=== PATIENT | female | born 1990 | race Caucasian/White ===

== ENCOUNTER 2020-03-24 11:40 | Emergency (ER) | payer OTHER, SELFPAY ==
[2020-03-24 11:51] VITALS: BP 108/71; PULSE 86; RESP 18; TEMP 36.9; O2SAT 99; BMI 26.4
--- NOTE | 2020-03-24 12:04 | CT_ITS ---
EXAMINATION: CT SOFT TISSUE NECK WITH CONTRAST CLINICAL INFORMATION: Right lower dental pain. COMPARISON: None TECHNIQUE: Following the intravenous administration of 100 mL of Omnipaque 350 intravenous contrast, helical imaging was performed in the axial plane with generation of coronal and sagittal reformatted images. This CT examination was performed using dose optimization techniques as appropriate, variously including the following: *Automated exposure control *Adjustment of mA and/or kV according to patient size (this includes techniques or standardized protocols for targeted exams where dose is matched to indication/reason for exam; i.e. extremities or head) *Use of iterative reconstruction technique DLP: 789 mGy-cm FINDINGS: There are prominent large right submandibular lymph nodes largest one measuring 1.9 x 1.1 cm image 69/3. The parotid glands are homogeneous in attenuation. The submandibular glands are normal. No contour abnormality or pathologic enhancement is seen within the oral cavity or pharyngeal mucosal space. There is moderate soft tissue in the right anterior buccal space extending to the right mandibular soft tissues and mild cellulitis involving the subcutaneous right cheek fat. Due to several dental amalgam related artifacts along the right and left mandible the exam is limited. There is a small premolar cyst extending to the lateral cortex of the abdomen mandible on axial image 67/CN coronal image 18/5 likely small abscess. The laryngeal structures are normal. The parapharyngeal fat is preserved. The carotid sheath vasculature opacify normally. No extra mucosal soft tissue mass or fluid collection is seen. No retropharyngeal fluid collection is seen. The thyroid gland is enlarged and heterogeneous. The superior mediastinum is unremarkable. Platelike atelectasis right upper lobe. The mastoid air cells and visualized portions of the paranasal sinuses are well-aerated. The temporomandibular joints are normal. No periapical disease is identified. No osseous abnormalities are seen. The imaged portions of the brain parenchyma are unremarkable. CT/CT soft tissue neck w con IMPRESSION: Right lower premolar periapical cyst/abscess with right mandibular soft tissue cellulitis. No soft tissue drainable abscess seen. Abnormal right submandibular gland space lymphadenopathy. Heterogenous slightly enlarged thyroid gland.
--- NOTE | 2020-03-24 12:04 | ED.DENTAL ---
HPI - Dental/Oral General Chief complaint: Dental/Oral Stated complaint: Dental Pain Time Seen by Provider: 03/24/20 11:58 Source: patient Mode of arrival: ambulatory Limitations: no limitations History of Present Illness HPI Narrative: 30yoF c PMHx of anxiety disorder, bipolar 1 disorder and schizophrenic disorder presenting to the ED with complaints of right lower facial swelling due to of fractured tooth/ dental pain. The patient reports she followed up with her dentist yesterday and they started her on Augmentin and she has taken 3 doses although she called them back today due to worsening swelling and instructed her to come to the emergency department. Patient denies any other symptoms complaints or concerns at this time. Location: Tooth # (possibly 28th Tooth ) Related Data Previous Rx's Medication Instructions Recorded clindamycin HCl 300 mg PO TID 14 Days #42 cap 03/24/20 ibuprofen 800 mg PO Q8H PRN #14 tab 03/24/20 oxycodone-acetaminophen [Percocet] 1 tab PO Q6H PRN #14 tab 03/24/20 Allergies Allergy/AdvReac Type Severity Reaction Status Date / Time No Known Allergies Allergy Unverified 02/10/20 17:33 Review of Systems Review of Systems: Constitutional : No Fever, No Chills, No changes in PO intake, No difficulty speaking, no recent dental procedure, no heat or cold intolerance while eating, no recent face trauma, ENT/Mouth : + jaw pain, + facial swelling, No swallowing difficulty, no change in voice, no drooling, no trismus, no bleeding, no throat swelling, no lacerations, no tongue swelling, gum swelling, Eyes: No Eye Pain, No periorbital Swelling Cardiovascular : No Chest Pain, No SOB Respiratory : No Cough, No Sputum, No Wheezing, No Smoke Exposure, No Dyspnea Gastrointestinal : No Nausea, No Vomiting, No Diarrhea Genitourinary : No Dysuria Musculoskeletal : No Myalgias Skin : + facial swelling, + facial redness, No rash, Neuro : No Weakness, No Numbness, No Headache Yes all other systems are reviewed and are negative [facility] Past Medical History Attestation statement: The following information was validated with the patient. Medical History Anxiety Bipolar 1 disorder Schizophrenic disorder Surgical History Hx of appendectomy Social History Social History Alcohol intake: never Smoking Status: Current every day smoker Use of substances other than those prescribed or required for medical reasons: Yes Substance Use Type: Marijuana Substance Use Frequency: Daily Any prior treatment program specific to substance use: No Advance Directives: No Advance Directives Information Provided: No Physical Exam Vital Signs: Vital Signs: Vital Signs Temp Pulse Resp BP Pulse Ox 03/24/20 14:00 98.5 F 82 18 110/68 98 03/24/20 11:51 98.4 F 86 18 108/71 99 Body Mass Index 26.4 vital signs have been reviewed as normal and appeared to be correct. Blood pressure normal. Heart rate normal. Respiration rate normal. Temperature normal. Oxygen saturation normal. Appearance: Alert. Oriented X3. No acute distress. Head: Right mandibular sts. Eyes: PERRLA. EOMI. Conjunctiva and sclera normal. Eyelids normal. ENT: EAC normal. Pharynx normal. Uvula midline. Moist mucous membranes. No trismus noted. No drooling noted. No muffled voice noted. Dentation: At right lower molar possibly the 28th molar site there is no tooth and patient has fluctuance at the periodontal aspect ? abscess. No draining noted. Neck: Normal inspection. Neck supple. FROM. No adenopathy. Thyroid Normal. No meningeal signs. No neck mass noted. CVS: Normal heart rate and rhythm. Heart sound normal. No murmurs noted. Pulses normal throughout. Respiratory: No respiratory distress. Painless inspiration. Breath sounds normal. No wheezes/rales/rhonchi noted. Chest nontender. No accessory muscle usage noted or decreased air movement noted. Back:Full range of motion noted. Skin: Skin warm and dry. Normal skin color. Normal skin turgor. No rashes/lesions/lacerations noted. Extremities: Extremities exhibit normal range of motion. Extremities nontender. Neuro: Oriented X 3. No motor deficit. No sensory deficit. Reflexes normal. Course Course Course Narrative: 12noon - 30yoF c PMHx of anxiety disorder, bipolar 1 disorder and schizophrenic disorder presenting to the ED with complaints of right lower facial swelling due to of fractured tooth/ dental pain. The patient reports she followed up with her dentist yesterday and they started her on Augmentin and she has taken 3 doses although she called them back today due to worsening swelling and instructed her to come to the emergency department. Patient denies any other symptoms complaints or concerns at this time. - Concern for Periodontal abscess vs Periapical abscess vs dental infection c facial cellulitis. - Plan: Labs, CT SCAN of facial bones, blood cultures, lactic acid. provide IVFs, 4 mg of morphine and start IV abx's. Pt does not meets sepsis at this time. All vitals are WNL. Reevaluation(s) Reevaluation #1: - [place] [address]. Otherwise all other labs are WNL. Serum quant negative. Patient awaiting CT scan of facial bones with IV contrast to evaluate for possible abscess vs Lugwigs. - I notice when I went to re-examine the patient that now she has more soft tissue swelling extending to the left side of the chin/mandibular area which she did not have when she initially arrived. She is awaiting CT scan of facial bones with the stat read. Given 1 mg of Dilaudid and topical numbing medication will re-evaluate. Time: 14:07 Reevaluation #2: CT scan of facial bones and neck revealed right lower rodriguez molar periapical cyst / abscess with right mandibular soft tissues cellulitis. No soft tissue drainable abscess seen therefore will DC home with p.o. antibiotics and instructions to return in [address] scan reports that there is no drainable abscess at this time. Patient understands and agrees with this plan. Time: 16:23 MDM - Dental/Oral Medical Records Attestation: I reviewed the patient's medical records. Lab Data Attestation: I reviewed the patient's lab results. Result diagrams: 03/24/20 12:13 03/24/20 12:13 Labs: Lab Results 03/24/20 03/24/20 03/24/20 Range/Units 12:13 12:13 12:13 WBC 12.1 H (4.8-10.8) X10*3/uL RBC 4.05 L (4.20-5.50) X10*6/uL Hgb 11.7 L (12.0-16.0) g/dl Hct 36.7 L (37-47) % MCV 90.6 (80-98) fL MCH 28.9 (27.0-33.0) pg MCHC 31.9 (31.0-35.0) g/dl RDW 13.8 (11.0-16.0) % Plt Count 317 (160-400) X10*3/uL MPV 9.0 L (9.4-12.3) fL Immature Gran % (Auto) 0.4 (0.0-0.4) % Neut % (Auto) 74.4 H (45-73) % Lymph % (Auto) 18.5 L (20-40) % Spalding % (Auto) 6.3 (2-11) % Eos % (Auto) 0.2 (0-4) % Baso % (Auto) 0.2 (0-2) % Lymph # (Auto) 2.2 (1.2-4.9) X10*3/uL [place] # (Auto) 0.8 (0.1-1.2) X10*3/uL Eos # (Auto) 0.0 (0.0-0.4) X10*3/uL Baso # (Auto) 0.0 (0.0-0.2) X10*3/uL Abs Immat Gran (auto) 0.05 H (0.00-0.03) X10*3/uL Absolute Neuts (auto) 9.0 H (2.0-8.3) X10*3/uL Absolute Nucleated RBC 0.000 (0.0-0.012) X10*3/uL Nucleated RBC % (auto) 0.0 (0.0-0.2) /100WBC PT 12.9 (10.8-13.0) SEC INR 1.1 (0.9-1.1) Hold Blue Top SEE NOTE Sodium 136 (135-145) mmol/L Potassium 3.9 (3.3-5.1) mmol/l Chloride 105 (96-108) mmol/L Carbon Dioxide 23 (22-29) mmol/L Anion Gap 12 (12-20) BUN 8 L (9-16) mg/dL Creatinine 0.63 (0.5-1.4) mg/dL Estim Creat Clear Calc 115.9 Estimated GFR > 60 Random Glucose 92 (60-115) mg/dL Lactic Acid (0.5-2.0) mmol/L Calcium 8.2 L (8.4-10.2) mg/dL Beta HCG, Quant < 2 mIU/mL 03/24/20 Range/Units 12:13 WBC (4.8-10.8) X10*3/uL RBC (4.20-5.50) X10*6/uL Hgb (12.0-16.0) g/dl Hct (37-47) % MCV (80-98) fL MCH (27.0-33.0) pg MCHC (31.0-35.0) g/dl RDW (11.0-16.0) % Plt Count (160-400) X10*3/uL MPV (9.4-12.3) fL Immature Gran % (Auto) (0.0-0.4) % Neut % (Auto) (45-73) % Lymph % (Auto) (20-40) % Sp[place]ding % (Auto) (2-11) % Eos % (Auto) (0-4) % Baso % (Auto) (0-2) % Lymph # (Auto) (1.2-4.9) X10*3/uL [place] # (Auto) (0.1-1.2) X10*3/uL Eos # (Auto) (0.0-0.4) X10*3/uL Baso # (Auto) (0.0-0.2) X10*3/uL Abs Immat Gran (auto) (0.00-0.03) X10*3/uL Absolute Neuts (auto) (2.0-8.3) X10*3/uL Absolute Nucleated RBC (0.0-0.012) X10*3/uL Nucleated RBC % (auto) (0.0-0.2) /100WBC PT (10.8-13.0) SEC INR (0.9-1.1) Hold Blue Top Sodium (135-145) mmol/L Potassium (3.3-5.1) mmol/l Chloride (96-108) mmol/L Carbon Dioxide (22-29) mmol/L Anion Gap (12-20) BUN (9-16) mg/dL Creatinine (0.5-1.4) mg/dL Estim Creat Clear Calc Estimated GFR Random Glucose (60-115) mg/dL Lactic Acid 0.8 (0.5-2.0) mmol/L Calcium (8.4-10.2) mg/dL Beta HCG, Quant mIU/mL Imaging Data facial bones/neck pain : Attestation: I personally reviewed and interpreted this imaging study as follows: Radiologist's impression: IMPRESSION: Right lower premolar periapical cyst/abscess with right mandibular soft tissue cellulitis. No soft tissue drainable abscess seen. Abnormal right submandibular gland space lymphadenopathy. Heterogenous slightly enlarged thyroid gland. Critical Care Time Critical Care Time Critical Care Time: Yes Total Critical Care Time: 60 Attestation: I personally attest to this time spent taking care of the patient Discharge Plan Discharge Clinical Impression: Periapical abscess with facial involvement Patient Disposition: Home, Self-Care Instructions: Dental Abscess (ED) Prescriptions: New oxycodone-acetaminophen [Percocet] 5-325 mg tablet 1 tab PO Q6H PRN (Reason: pain) Qty: 14 RF: 0 clindamycin HCl 300 mg capsule 300 mg PO TID 14 Days Qty: 42 RF: 0 ibuprofen 800 mg tablet 800 mg PO Q8H PRN (Reason: pain) Qty: 14 RF: 0 Referrals: Kirstie Peoples PA [Emergency Midlevel Provider] - 2 days ( For facial cellulitis/ periapical abscess that is nothing to drain at this time recheck) Stand Alone Forms: Work/School Release Discharge Date/Time: 03/24/20 16:24 Print Language: Libyan
[2020-03-24] MEDS: 0.9 % Sodium Chloride 1,000 ML 999 ML IVCONT (12:14)
[2020-03-24 12:23] LABS: Basophils Percent Auto 0.2 % (0-2); Eosinophils Percent Auto 0.2 % (0-4); Hematocrit 36.7 % (37-47); Hemoglobin 11.7 g/dl (12.0-16.0); Imm Gran Abs Auto 0.05 X10*3/uL (0.00-0.03); Imm Gran Pct Auto 0.4 % (0.0-0.4); Lymphocytes Absolute Auto 2.2 X10*3/uL (1.2-4.9); Lymphocytes Percent Auto 18.5 % (20-40); MANUAL DIFF FLAG NO; Mean Corpuscular HGB Conc 31.9 g/dl (31.0-35.0); Mean Corpuscular Hemoglobin 28.9 pg (27.0-33.0); Mean Corpuscular Volume 90.6 fL (80-98); Monocytes Absolute Auto 0.8 X10*3/uL (0.1-1.2); Monocytes Percent Auto 6.3 % (2-11); Neutrophils Percent Auto 74.4 % (45-73); Platelet Count 317 X10*3/uL (160-400); Red Blood Count 4.05 X10*6/uL (4.20-5.50); Red Cell Distribution Width 13.8 % (11.0-16.0); White Blood Count 12.1 X10*3/uL (4.8-10.8)
[2020-03-24] MEDS: ondansetron HCL 4 MG/2 ML VIAL IVPUSH (12:26)
[2020-03-24] MEDS: Morphine Sulfate 4 MG/ML CARTRIDGE IVPUSH (12:26)
[2020-03-24 12:30] LABS: INTERNATIONAL NORM RATIO 1.1 (0.9-1.1); Prothrombin Time 12.9 SEC (10.8-13.0)
--- NOTE | 2020-03-24 12:35 | PC.NURSE ---
patient a&ox3, rt facial swelling/pain, pt stated her pain is 20/10, iv inserted, labs drawn, bcx2 drawn, pt medicated per order, pt awaiting 1 med from pharmacy and awaiting ct scan, vss, will continue to monitor.
[2020-03-24 12:39] LABS: Lactic Acid 0.8 mmol/L (0.5-2.0)
[2020-03-24] MEDS: Clindamycin Phosphate/D5W 900 MG/50 ML PIGGYBACK 50 MG IV (13:07)
--- NOTE | 2020-03-24 13:08 | PC.NURSE ---
called pharmacy again about missing med, they are fixing the order in the computer to obtain from pyxis, iv antibiotics hung per order, pt c/o 03/04 pain and stated morphine did not help, will continue to monitor.
[2020-03-24 13:19] LABS: Anion Gap 12 (12-20); Blood Urea Nitrogen 8 mg/dL (9-16); Calcium 8.2 mg/dL (8.4-10.2); Carbon Dioxide 23 mmol/L (22-29); Chloride 105 mmol/L (96-108); Creatinine Clr Calc Pharmacy 115.9; Estimated Glomerular Filt Rate > 60; Glucose Random 92 mg/dL (60-115); Potassium 3.9 mmol/l (3.3-5.1); Sodium 136 mmol/L (135-145)
[2020-03-24 13:29] LABS: HCG Quantitative < 2 mIU/mL
[2020-03-24 14:00] VITALS: BP 110/68; PULSE 82; RESP 18; TEMP 36.9; O2SAT 98
[2020-03-24] MEDS: HYDROmorphone HCl 1 MG/ML SYRINGE IVPUSH (14:05)
--- NOTE | 2020-03-24 14:10 | PC.NURSE ---
patient has increased swelling, pt medicated for pain with dilaudid per order, pt moving to rm 5 per provider request
--- NOTE | 2020-03-24 14:14 | PC.NURSE ---
pt denies difficulty breathing with the increased swelling, continues to have c/o pain, patient has moved to bed 5, report given to maggy.
[2020-03-24] MEDS: iohexoL 350 MG/ML 100 ML INFUS..BTL 70 ML IV (14:34)
[2020-03-24] MEDS: oxyCODONE HCl Immed Release 5 MG TABLET PO (14:46)
[2020-03-24] MEDS: Ketorolac Tromethamine 15 MG/ML VIAL 30 MG IV (14:51)
[2020-03-24] MEDS: LORazepam 2 MG/ML VIAL 0.5 MG IVPUSH (16:02)
== END 2020-03-24 16:24 | disposition home or self-care (01) ==
PROVIDERS: Physician Assistant Medical; Emergency Provider Emergency Medicine; PCP Internal Medicine
DX: K04.7 Periapical abscess without sinus (principal); F17.200 Nicotine dependence, unspecified, uncomplicated; Z71.6 Tobacco abuse counseling; F12.90 Cannabis use, unspecified, uncomplicated
CPT/HCPCS: 36415; 70491; 80048; 83605; 84702; 85025; 85610; 87040; 96361; 96365; 96375; 99284; 99291; J1170; J1885; J2060; J2270; J2405; Q9967